=== PATIENT | female | born 1960 | race African-American/Black ===

== ENCOUNTER 2021-10-24 20:51 | Emergency (ER) | payer MEDICAID ==
[~2021-10-24] VITALS: Ht 172.7 cm; Wt 77.1 kg
--- NOTE | 2021-10-24 21:50 | NUR ---
BIBS C/O LOWER ABD PAIN AND PAINFUL URINATION X 2 MONTHS. PLACED COMFORTABLY IN BED. VITALS CHECKED.
--- NOTE | 2021-10-24 21:54 | NUR ---
URINE SPECIMEN SENT TO LAB
--- NOTE | 2021-10-24 22:15 | NUR ---
IV CANNULA G20 INSERTED ON RIGHT AC. BLOOD DRAWN AND SENT TO LAB
[2021-10-24] MEDS ORDERED: ONDANSETRON HCL/PF 4 MG/2 ML VIAL ONE (22:18)
[2021-10-24] MEDS ORDERED: IV NS 0.9% 1,000 ML BAG IV ONE (22:30)
[2021-10-24] MEDS ORDERED: ONDANSETRON HCL/PF 4 MG/2 ML VIAL IVP ONE (22:30)
[2021-10-24] MEDS ORDERED: HYDROMORPHONE HCL 2 MG TABLET PO PRN (22:30)
[2021-10-24] MEDS ORDERED: HYDROMORPHONE HCL 2 MG TABLET ONE (22:35)
[2021-10-24 22:40] LABS: BASOPHILS # (AUTO) 0.1 K/uL (0.0-0.2); EOSINOPHILS % (AUTO) 2.2 % (0.0-6.0); HEMATOCRIT 43 % (33-45); HEMOGLOBIN 14.2 g/dL (11.5-14.8); LYMPHOCYTES # (AUTO) 4.4 K/uL (0.8-4.8); MEAN CORPUSCULAR HGB CONC 33 g/dl (31.0-36.0); MEAN CORPUSCULAR VOLUME 92 fL (82-100); MONOCYTES # (AUTO) 0.5 K/uL (0.1-1.30); MONOCYTES % (AUTO) 5.8 % (2.0-12.0); NEUTROPHILS # (AUTO) 3.1 K/uL (1.8-8.9); PLATELET COUNT (AUTO) 199 K/uL (150-450); RED BLOOD CELL COUNT(AUTO) 4.63 MIL/uL (4.0-5.2); WHITE BLOOD COUNT (AUTO) 8.3 K/uL (4.3-11.0)
--- NOTE | 2021-10-24 22:45 | NUR ---
PAIN MEDICATION GIVEN.
[2021-10-24 22:54] LABS: CALCIUM, SERUM 9.9 mg/dL (8.5-10.1); POTASSIUM 3.5 mmol/L (3.5-5.1)
[2021-10-24 22:57] LABS: ALBUMIN 4.1 g/dL (3.4-5.0); BILIRUBIN,DIRECT 0.1 mg/dL (0.0-0.2); BILIRUBIN,TOTAL 0.4 mg/dL (0.2-1.0); TOTAL PROTEIN, SERUM 7.7 g/dL (6.4-8.2)
[2021-10-24 23:03] LABS: BILIRUBIN,URINE NEGATIVE (NEGATIVE); COLOR,URINE YELLOW (YELLOW); LEUKOCYTE ESTERASE ,URINE NEGATIVE (NEGATIVE); NITRITE, URINE NEGATIVE (NEGATIVE); PROTEIN,URINE NEGATIVE (NEGATIVE); UGLUCOSE NEGATIVE (NEGATIVE)
--- NOTE | 2021-10-24 23:03 | NUR ---
BROUGHT PATIENT TO CT DEPT
--- NOTE | 2021-10-24 23:17 | NUR ---
CAME BACK FROM CT SCAN
[2021-10-25] MEDS ORDERED: HYDR2TAB4 PO (00:13)
[2021-10-25 00:36] VITALS: BP 122/89
== END 2021-10-25 00:37 | disposition home or self-care (01) ==
LOC: ER 21:02
DX: R10.9 Unspecified abdominal pain (principal); G89.29 Other chronic pain; R30.0 Dysuria; E11.9 Type 2 diabetes mellitus without complications
CPT/HCPCS: 36415; 74176; 80048; 80076; 81003; 83690; 85025; 96361; 96374; 99284; J2405; J7030

== ENCOUNTER 2022-01-03 20:16 | Emergency (ER) | payer MEDICAID ==
[~2022-01-03] VITALS: Ht 170.2 cm; Wt 77.1 kg
[~2022-01-03 20:16] MED LIST: HYDR2TAB4 PO
--- NOTE | 2022-01-03 20:43 | NUR ---
URINE SPECIMEN COLLECTED AND SENT TO LAB.
--- NOTE | 2022-01-03 20:45 | NUR ---
BIBS. DIZZYNESS, HEADACHE AND EXERTIONAL DYSPNEA X YESTERDAY. PLACED ON BED, AAOX4, BREATHING EVEN AND UNLABORED SATURATING AT 98%RAKelly PITTS AT BED SIDE.
--- NOTE | 2022-01-03 20:57 | NUR ---
TIP INSERTER AT PT'S BEDSIDE
[2022-01-03 21:20] LABS: BASOPHILS # (AUTO) 0.1 K/uL (0.0-0.2); BASOPHILS % (AUTO) 0.9 % (0.0-2.0); EOSINOPHILS % (AUTO) 2.4 % (0.0-6.0); HEMATOCRIT 43 % (33-45); HEMOGLOBIN 14.4 g/dL (11.5-14.8); LYMPHOCYTES # (AUTO) 4.4 K/uL (0.8-4.8); LYMPHOCYTES % (AUTO) 44.9 % (20.0-44.0); MEAN CORPUSCULAR HGB CONC 33 g/dl (31.0-36.0); MEAN CORPUSCULAR VOLUME 91 fL (82-100); MONOCYTES # (AUTO) 0.6 K/uL (0.1-1.30); MONOCYTES % (AUTO) 5.7 % (2.0-12.0); NEUTROPHILS # (AUTO) 4.6 K/uL (1.8-8.9); NEUTROPHILS % (AUTO) 46.1 % (43.0-81.0); RED BLOOD CELL COUNT(AUTO) 4.72 MIL/uL (4.0-5.2); WHITE BLOOD COUNT (AUTO) 9.9 K/uL (4.3-11.0)
[2022-01-03 21:41] LABS: ALANINE AMINOTRANSFERASE 34 U/L (12-78); ALBUMIN 4.4 g/dL (3.4-5.0); ALKALINE PHOSPHATASE 139 U/L (46-116); ASPARTATE AMINOTRANSFERASE 28 U/L (15-37); BILIRUBIN,TOTAL 0.3 mg/dL (0.2-1.0); CALCIUM, SERUM 10.2 mg/dL (8.5-10.1); CARBON DIOXIDE 28 mmol/L (21-32); CHLORIDE 105 mmol/L (98-107); CREATININE 0.6 mg/dL (0.6-1.3); GLUCOSE 105 mg/dL (74-106); SODIUM SERUM 141 mmol/L (136-145); TOTAL PROTEIN, SERUM 8.5 g/dL (6.4-8.2); UREA NITROGEN, BLOOD 10 mg/dL (7-18)
[2022-01-03] MEDS ORDERED: ONDANSETRON HCL/PF 4 MG/2 ML VIAL ONE (21:59)
[2022-01-03] MEDS ORDERED: MORPHINE SULFATE INJ 4 MG/ML DISP.SYRIN ONE (21:59)
[2022-01-03] MEDS: MORPHINE SULFATE INJ 2 MG/ML DISP.SYRIN IV ONE (22:03)
[2022-01-03] MEDS ORDERED: IOHEXOL-350 100 ML VIAL IV ONE (22:04)
[2022-01-03] MEDS ORDERED: CT SWABBABLE VALVE TRANS SET 1 EA INFUS.SET MC ONE (22:04)
[2022-01-03] MEDS ORDERED: IV NS 0.9% 250 ML IV ONE (22:05)
[2022-01-03] MEDS: ONDANSETRON HCL/PF 4 MG/2 ML VIAL IVP ONE (22:05)
[2022-01-03 22:06] LABS: PLATELET COUNT (AUTO) 219 K/uL (150-450)
--- NOTE | 2022-01-03 22:07 | NUR ---
PATIENT TAKEN TO CT VIA GURNEY.
[2022-01-04] MEDS ORDERED: ALBU18HF2 INH (00:50)
--- NOTE | 2022-01-04 01:01 | NUR ---
Patient discharged to home in stable condition. Written and verbal after care instructions given. Patient verbalizes understanding of instruction. IV removed. Catheter intact and site benign. Pressure and 4x4 applied to site. No bleeding noted. pt ambulatory with a steady gait
[2022-01-04 01:10] VITALS: BP 124/89
== END 2022-01-04 01:10 | disposition home or self-care (01) ==
LOC: ER 20:18
DX: R51.9 Headache, unspecified (principal); I10 Essential (primary) hypertension; F17.200 Nicotine dependence, unspecified, uncomplicated; Z60.2 Problems related to living alone
CPT/HCPCS: 99285; 70498; 96374; 71045; 96375; 93005; 70496; 85025; 80048; 80076; 36415; 84484; 85730; 70450; 85007; J2270; J2405; J7050; Q9967